=== PATIENT | male | born 1960 | race Asian ===

== ENCOUNTER 2020-04-23 11:34 | Emergency (ER) | payer OTHER ==
[~2020-04-23] VITALS: Ht 165.1 cm; Wt 66.7 kg
[2020-04-23 11:39] VITALS: BP 170/102
--- NOTE | 2020-04-23 11:44 | NUR ---
59 Y/O male from home c/o right hand discomfort s/p fish hook stuck in hand today. Pt Denies pain. Noticable hook in right hand. +CMS, + Pulses. Skin warm, dry, intact. medhx: HTN
--- NOTE | 2020-04-23 12:26 | NUR ---
Patient taken to XRAY via wheelchair by tech.
[2020-04-23] MEDS ORDERED: LIDOCAINE/EPI 1% 1:100000 20 ML VIAL INJ ONE (13:10)
--- NOTE | 2020-04-23 13:21 | NUR ---
Dr Samuel at [facility] for fish hook removal
[2020-04-23 13:44] VITALS: BP 151/94
--- NOTE | 2020-04-23 13:44 | NUR ---
Patient discharged with v/s stable. Written and verbal after care instructions given and explained. Patient verbalized understanding. Ambulatory with steady gait. All questions addressed prior to discharge. Advised to follow up with PMD.
== END 2020-04-23 13:44 | disposition home or self-care (01) ==
LOC: MED 11:34
DX: T18.9XXA Foreign body of alimentary tract, part unspecified, initial encounter (principal); I10 Essential (primary) hypertension; W45.8XXA Other foreign body or object entering through skin, initial encounter
CPT/HCPCS: 73130; 90471; 90715; 99284; J2001; 99283; 99285